=== PATIENT | female | born 1985 | race Caucasian/White ===

== ENCOUNTER 2021-01-02 12:56 | Emergency (ER) | payer OTHER ==
[~2021-01-02] VITALS: Ht 162.6 cm; Wt 68.0 kg
[2021-01-02] MEDS ORDERED: MEDROLDOSEPACK PO (13:24)
[2021-01-02] MEDS ORDERED: MOBIC7.5 MG PO (13:24)
[2021-01-02 13:26] VITALS: BP 131/81
== END 2021-01-02 13:26 | disposition home or self-care (01) ==
LOC: M.ERS 12:56
DX: M54.41 Lumbago with sciatica, right side (principal); F12.90 Cannabis use, unspecified, uncomplicated; Z98.51 Tubal ligation status; Z98.890 Other specified postprocedural states